=== PATIENT | male | born 1955 | race Caucasian/White ===

== ENCOUNTER → 2016-06-26 | Outpatient (CLI) | payer BC, OTHER | LOC: RAD 10:50 | PROVIDERS: ATTEND Orthopaedic Surgery | DX: S46.012S Strain of muscle(s) and tendon(s) of the rotator cuff of left shoulder, sequela (principal); X58.XXXS Exposure to other specified factors, sequela ==

== ENCOUNTER → 2016-07-15 | Outpatient (CLI) | payer BC, OTHER ==
[2016-07-15 15:32] LABS: ABSOLUTE BASOPHILS # (AUTO) 0.1 10^3/uL (0.0-0.2); ABSOLUTE EOSINOPHILS # (AUTO) 0.1 10^3/uL (0.0-0.6); ABSOLUTE MONOCYTES (AUTO) 0.5 10^3/uL (0.1-1.4); ABSOLUTE NEUT (AUTO) 4.1 10^3/uL (1.7-8.2); BASOPHILS % (AUTO) 0.8 % (0-2); EOSINOPHILS % (AUTO) 1.8 % (0-6); HEMATOCRIT 39.8 % (37.9-51.0); HEMOGLOBIN 13.6 g/dL (13.5-17.0); LYMPHOCYTES % (AUTO) 29.5 % (13-45); MEAN CORPUSCULAR HGB CONC 34.1 g/dL (32.0-36.0); MEAN CORPUSCULAR VOLUME 76 fl (80-97); MONOCYTES % (AUTO) 7.9 % (3-13); RED BLOOD COUNT 5.23 10^6/uL (4.35-5.55); RED CELL DISTRIBUTION WIDTH 14.6 % (11.5-14.0); WHITE BLOOD COUNT 6.8 10^3/uL (4.0-10.5)
[2016-07-15 15:39] LABS: APPEARANCE,URINE SLIGHTLY-CLOUDY; BILIRUBIN,URINE NEGATIVE (NEGATIVE); GLUCOSE, URINE NEGATIVE (NEGATIVE); KETONES,URINE NEGATIVE (NEGATIVE); LEUKOCYTE ESTERASE,URINE NEGATIVE (NEGATIVE); NITRITE,URINE NEGATIVE (NEGATIVE); PROTEIN,URINE NEGATIVE (NEGATIVE); URINE SPECIFIC GRAVITY 1.009; UROBILINOGEN,URINE NEGATIVE mg/dL (<2.0)
[2016-07-15 15:54] LABS: ANION GAP 13 (5-19); BLOOD UREA NITROGEN 13 mg/dL (7-20); CALCIUM 11.1 mg/dL (8.4-10.2); CARBON DIOXIDE 27 mmol/L (22-30); CHLORIDE 104 mmol/L (98-107); CREATININE RESULT 0.84 mg/dL (0.52-1.25); GLUCOSE 82 mg/dL (75-110); POTASSIUM 4.6 mmol/L (3.6-5.0); SODIUM 144.2 mmol/L (137-145)
--- NOTE | 2016-07-15 21:17 | EKG REPORT ---
SEVERITY:- NORMAL ECG - SINUS RHYTHM : Confirmed by: Justine Alexander 15-Jul-2016 21:16:50
== END ==
LOC: OD 14:06
PROVIDERS: ATTEND Orthopaedic Surgery
DX: Z01.810 Encounter for preprocedural cardiovascular examination (principal); Z01.812 Encounter for preprocedural laboratory examination; Z01.818 Encounter for other preprocedural examination
CPT/HCPCS: 36415; 71020; 80048; 81001; 85025; 93005; 93010

== ENCOUNTER 2016-08-13 05:23 | Day surgery (SDC) | payer BC, OTHER ==
[~2016-08-13 05:23] MED LIST: CEFAZOLIN 2 GM/D5W RTU 2 GM/50 ML RTUPB IV PRN; LACTATED RINGERS 1000 ML IV PRN; LIDOCAINE 0.5% INJ-PF (5 MG/ML) 50 ML SDV SUBCUT PRN
[2016-08-13] MEDS ORDERED: BUPIVACAINE HCL 0.5 % INJ/PF 30 ML SDV ONE (06:46)
[2016-08-13] MEDS ORDERED: PROPOFOL INJ 200 MG/20 ML VIAL IV ONE (06:48)
[2016-08-13] MEDS ORDERED: FENTANYL CITRATE INJ/PF 250 MCG/5 ML AMPULE ONE (06:48)
[2016-08-13] MEDS ORDERED: MIDAZOLAM 2 MG/2 ML INJ ONE (06:48)
[2016-08-13] MEDS ORDERED: EPHEDRINE SULFATE INJ 50 MG/1 ML AMPULE ONE (06:48)
[2016-08-13] MEDS ORDERED: ACETAMINOPHEN 100 ML IV ONE ×2 (06:48→15:22)
[2016-08-13] MEDS ORDERED: EPINEPHRINE INJ/PF 1 MG/1 ML AMPULE ONE ×4 (07:15→09:18)
[2016-08-13] MEDS: EPINEPHRINE INJ/PF 1 MG/1 ML AMPULE ONE ×2 (08:34→09:20)
[2016-08-13] MEDS ORDERED: HYDROMORPHONE HCL INJ/PF 2 MG/ML AMPULE ONE (09:41)
[2016-08-13] MEDS ORDERED: FENTANYL CITRATE INJ/PF 100 MCG/2 ML AMPUL ONE (09:41)
[2016-08-13] MEDS ORDERED: ONDANSETRON HCL INJ/PF 4 MG/2 ML SDV IV PRN (11:21)
[2016-08-13] MEDS ORDERED: MEPERIDINE HCL/PF INJ 25 MG/1 ML DISP.SYRIN IV PRN (11:21)
[2016-08-13] MEDS ORDERED: FENTANYL CITRATE INJ/PF 100 MCG/2 ML AMPUL IV PRN ×3 (11:21)
[2016-08-13] MEDS ORDERED: PROMETHAZINE HCL INJ 25 MG/1 ML VIAL IV PRN ×2 (11:21)
[2016-08-13] MEDS ORDERED: MORPHINE SULFATE 10 MG/ML INJ IV PRN (11:21)
[2016-08-13] MEDS ORDERED: OXYCODONE-ACETAMINOPHEN 5-325 MG TABLET PO PRN ×3 (11:21→16:56)
[2016-08-13] MEDS ORDERED: DIPHENHYDRAMINE HCL 50 MG/ML VIAL IV PRN (11:21)
[2016-08-13] MEDS ORDERED: DEXMEDETOMIDINE INJ 80 MCG/20 ML VIAL IV ONE ×2 (13:22→13:44)
--- NOTE | 2016-08-13 13:57 | Operative Report ---
Operative Report DATE OF SURGERY: 08/13/16 PREOPERATIVE DIAGNOSIS: Left shoulder rotator cuff tear and AC joint arthropathy POSTOPERATIVE DIAGNOSIS: Same OPERATION: Left shoulder arthroscopic rotator cuff repair including dermal allograft augmentation SURGEON: DAYNE RODAS ANESTHESIA: GA TISSUE REMOVED OR ALTERED: None COMPLICATIONS: I have one anchor pullout but was able to remove the anchor successfully. ESTIMATED BLOOD LOSS: 25 mL INTRAOPERATIVE FINDINGS: As above PROCEDURE: IMPLANTS: Dermal allograft. 2 bio composite push locks, one 5.5 mm corkscrew bio composite. 3 biocomposite swivel lock. DESCRIPTION OF PROCEDURE: Patient was brought to the operating room placed in supine position. After successfully induced and intubated the patient patient was placed in the beachchair position the head and endotracheal tube was secured appropriately. The left shoulder was prepped and draped in a normal surgical fashion. A timeout was done identifying the left shoulder as the correct site. After inflating the glenohumeral joint with sterile saline solution an 11 blade was used to establish the posterior portal. The arthroscope was introduced and return of fluid was seen showing that we successfully penetrated the glenohumeral joint. With the use of spinal needle we're able to abimbola the anterior portal and using an 11 blade able to establish anterior portal. A cannula was introduced through the anterior portal. At this point diagnostic scope was done. Patient had a irreparable rotator cuff repair. The infraspinatus was able to be brought back proximally but the supraspinatus was passed the glenoid and unable to bring back to the humeral head. At point I decided to use a dermal allograft for augmentation of her my repair. A lateral portal was established 11 blade. 4.0mm shaver was introduced and was used to prepare the bone for preparation of anchor placement. Same was done for the glenoid superiorly. I turned my attention to the glenoid where I did [address] place a push lock anterior and posteriorly using FiberWire to preload him. Was able to use a 2.9 drill guide and drilled the posterior one followed by the anterior one. I pulled on the FiberWire showing that there was secured. I then turned my attention to place a corkscrew in the posterior aspect of the humeral head for passing into the interspace tendon. I used a corkscrew the past all 4 strands through the tendon. I then placed a swivel lock loaded with a Fibertape. The fiber tape. I measured accordingly and then put the dermal graft to meet the thigh mentions a my 4 anchors. I was able then to place the dermal allograft and secured in the glenoid followed by the humeral head. I then placed my fiber tape securing the dermal allograft onto my lateral row by doing to lateral row pustules and successfully locking myofiber tape. Sounds workup. Due to the amount of swelling at this point we proceeded then to abort during the distal clavicle excision. Patient had a Stuart placed showing 700 mL's of fluid. Patient swelling was significant in the neck and therefore patient was intubated and sent to PACU where he was on a ventilator. Plan to extubate him either in the PACU later tonight or keep him in the ICU overnight for observation and extubated in the morning. Final pictures were taking showing my repair. At this point fluid from the shoulder was removed camera and instruments were all removed. I proceeded to close my portal sites with 3-0 nylon. Xeroform 4 x 4 dressing followed by ABDs pads and Medipore tape was applied. Patient was placed in a sling.
[2016-08-13] MEDS ORDERED: VECURONIUM BROMIDE INJ 10 MG VIAL IV ONE (14:20)
[2016-08-13] MEDS ORDERED: ONDANSETRON HCL INJ/PF 4 MG/2 ML SDV ONE (14:20)
[2016-08-13] MEDS ORDERED: METOCLOPRAMIDE HCL INJ/PF 10 MG/2 ML SDV ONE (14:20)
[2016-08-13] MEDS ORDERED: DEXAMETHASONE SOD PHOSPHATE INJ 4 MG/1 ML VIAL ONE (14:20)
[2016-08-13] MEDS ORDERED: LIDOCAINE 2% INJ-PF (20 MG/ML) 10 ML AMPUL ONE (14:20)
[2016-08-13] MEDS ORDERED: SUCCINYLCHOLINE CHLORIDE INJ 200 MG/10 ML VIAL ONE (14:20)
--- NOTE | 2016-08-13 14:30 | RADIOLOGY REPORT (SQ) ---
EXAM DESCRIPTION: CHEST SINGLE VIEW COMPLETED DATE/TIME: 08/13/2016 2:02 pm REASON FOR STUDY: POST OP PACU COMPARISON: 07/15/2016 EXAM PARAMETERS: NUMBER OF VIEWS: One view. TECHNIQUE: Single frontal radiographic view of the chest acquired. RADIATION DOSE: NA LIMITATIONS: None. FINDINGS: LUNGS AND PLEURA: There is opacity in the left base and the left hemidiaphragm is indistin ct. MEDIASTINUM AND HILAR STRUCTURES: No masses. Contour normal. HEART AND VASCULAR STRUCTURES: Cardiomegaly. There is no evidence of failure. BONES: No acute findings. HARDWARE: An endotracheal tube is present with the tip of tube 4 cm above the vesna. OTHER: No other significant finding. IMPRESSION: 1. A left lower lobe pneumonia cannot be ruled out. 2. Cardiomegaly without CHF. 3. Endotracheal tube as described. TECHNICAL DOCUMENTATION: JOB ID: [id number]
--- NOTE | 2016-08-13 14:32 | RADIOLOGY REPORT (SQ) ---
EXAM DESCRIPTION: SOFT TISSUE NECK COMPLETED DATE/TIME: 08/13/2016 2:02 pm REASON FOR STUDY: POST OP PACU M75.122 COMPLETE ROTATOR-CUFF TEAR/RUPTURE OF LEFT SHOULDER, NO COMPARISON: None. NUMBER OF VIEWS: Two views. TECHNIQUE: AP and lateral radiographic image of the soft tissues of the neck. LIMITATIONS: None. FINDINGS: An endotracheal tube is present. The tip of the tube is at the level of the vesna. Soft tissue structures in the neck are difficult to evaluate because of the presence of the tube. IMPRESSION: Endotracheal tube. Findings as described. TECHNICAL DOCUMENTATION: JOB ID: [id number] [id number]- All Rights Reserved
[2016-08-13] MEDS: HYDROMORPHONE HCL INJ/PF 2 MG/ML AMPULE ONE ×2 (14:48→15:20)
[2016-08-13] MEDS ORDERED: RINGERS SOLUTION,LACTATED 1,000 ML IV PRN (16:57)
[2016-08-13] MEDS ORDERED: IBUPROFEN 800 MG in NORMAL SALINE 250 ML IV ONE (18:00)
[2016-08-13] MEDS: OXYCODONE-ACETAMINOPHEN 5-325 MG TABLET PO PRN (18:01)
--- NOTE | 2016-08-13 19:13 | PDOC DISCHARGE SUMMARY ---
Discharge Summary (SDC) - Discharge Final Diagnosis: Left shoulder arthroscopic rotator cuff repair with dermal allograft augmentation Date of Surgery: 08/13/16 Discharge Date: 08/14/16 Condition: Good Treatment or Instructions: Patient is instructed to follow up in 10-14 days. Patient instructed to remove dressing in 4 days then can shower and apply Band- Aids as needed. Patient to wear sling for comfort but okay to remove for shower and pendulum exercises. Pendulum exercises are instructed to be done 3 times a day ideally with breakfast, lunch, dinners and showers. Patient instructed to call if there is any signs of redness or drainage fevers or chills. Prescriptions: Ondansetron HCl [Zofran 4 mg Tablet] 1 - 2 tab PO Q8HP PRN #10 tablet PRN Reason: Oxycodone HCl/Acetaminophen [Percocet 5-325 mg Tablet] 1 - 2 tab PO ASDIR PRN # 60 tablet PRN Reason: Discharge Diet: As Tolerated Respiratory Treatments at Home: Deep Breathing/Coughing Discharge Activity: No Lifting/Push/Pulling, Walk Frequently Report the Following to Your Physician Immediately: Shortness of Breath, Vomiting, Increase in Pain, Fever over 101 Degrees, Unusual Bleeding, Redness, Swelling, Warmth, Drainage-Yellow, Drainage-Green, Drainage-Foul Smelling, Visual Disturbance, Seizure
[2016-08-14] MEDS: OXYCODONE-ACETAMINOPHEN 5-325 MG TABLET PO PRN ×2 (00:22→06:18)
[2016-08-14 07:38] VITALS: BP 139/74
== END 2016-08-14 08:40 | disposition home or self-care (01) ==
LOC: OROUT 05:23 → 4S 16:45 → OROUT 08-14 08:40
PROVIDERS: ATTEND Orthopaedic Surgery
PROC: 0LU Tendons, Supplement (ICD-10-PCS; 2016-08-13)
PROC: 0RJK4ZZ Inspection of Left Shoulder Joint, Percutaneous Endoscopic Approach (ICD-10-PCS; principal; 2016-08-13 07:30)
DX: M25.512 Pain in left shoulder (principal); M13.812 Other specified arthritis, left shoulder; M75.122 Complete rotator cuff tear or rupture of left shoulder, not specified as traumatic; E66.9 Obesity, unspecified; I10 Essential (primary) hypertension; Z68.30 Body mass index [BMI] 30.0-30.9, adult; Z79.899 Other long term (current) drug therapy; Z79.1 Long term (current) use of non-steroidal anti-inflammatories (NSAID); Z79.82 Long term (current) use of aspirin; Z87.891 Personal history of nicotine dependence
CPT/HCPCS: 71010; 70360; 94002; 29805; 23420; 15777; C1713 ×4; Q4125; J2250; J1100; J3490 ×4; J0171; J3010 ×2; J2765; J1170; J0330; J2405; J7050; J2704; J0690; J0131; J1741; 1630

== ENCOUNTER → 2016-11-17 | Outpatient (CLI) | payer BC, OTHER ==
[2016-11-19 06:39] LABS: LUTEINIZING HORMONE 15.3 mIU/mL (1.7-8.6)
[2016-11-19 07:20] LABS: FOLLICLE STIMULATING HORMONE 17.7 mIU/mL (1.5-12.4)
== END ==
LOC: OD 17:40
PROVIDERS: ATTEND Urology
DX: I10 Essential (primary) hypertension (principal); N34.1 Nonspecific urethritis; N45.1 Epididymitis; K59.02 Outlet dysfunction constipation
CPT/HCPCS: 36415; 83001; 83002; 84153; 84403

== ENCOUNTER → 2016-12-18 | Outpatient (CLI) | payer BC ==
--- NOTE | 2016-12-18 12:53 | RADIOLOGY REPORT (SQ) ---
EXAM DESCRIPTION: MRI LT UPPER JOINT WITHOUT COMPLETED DATE/TIME: 12/18/2016 10:29 am REASON FOR STUDY: LEFT SHOULDER PAIN (M25.512) M25.512 PAIN IN LEFT SHOULDER COMPARISON: MRI left shoulder without contrast 06/26/2016 TECHNIQUE: Left shoulder images acquired and stored on PACS. Multiplanar imaging to include fat sens itive sequences such as T1, water sensitive sequences such as FST2/STIR, cartilage sensitive sequence s such as FSPD/gradient-echo sequences. LIMITATIONS: None. FINDINGS: BONE MARROW AND CORTEX: No worrisome bone lesions or marrow replacement. No occult fractur es. JOINT OR BURSAL EFFUSION: Small amount of subacromial/ subdeltoid bursal fluid. GLENO-HUMERAL ARTICULATION: Normal articulation. No subluxation. No cystic change. No osteophytes or cartilage loss. ACROMION AND AC JOINT: Type 2 acromion with bulky acromioclavicular joint bony spurring on sagittal i mage 8. The humeral head abuts the undersurface of the acromion through a large defect in the supras pinatus tendon. There is narrowing of the subacromial space. ROTATOR CUFF AND INTERVAL: The anterior 2/3 of the supraspinatus tendon are completely torn, with a b are area over the humeral head. The posterior 3rd of the supraspinatus tendon is intact, with tacks anchoring into the greater tuberosity humeral head. The upper half of the infraspinatus tendon is in tact, with tacks present anchoring and to the greater tuberosity left humeral head. There is high-gr mark tendinopathy throughout the lower half of the distal infraspinatus tendon. There is fatty atroph y of the supraspinatus muscle LABRUM AND BICEPS LABRAL COMPLEX: Diffusely abnormal upper half of the labrum from degeneration. No paralabral cysts. Absent intra-articular long head biceps tendon. Biceps tendon not seen in the bi cipital groove. Short head biceps tendon intact. REMAINDER OF LABRUM AND IGHL : Inferior labrum grossly intact. PERIARTICULAR AND ADJACENT SOFT TISSUES: No masses or abnormal nodes. OTHER: There is some fluid signal paralleling the rotator cuff tacks, question loosening. Infection could not entirely be excluded. IMPRESSION: Internal derangement as above TECHNICAL DOCUMENTATION: JOB ID: [id number]- All Rights Reserved
== END ==
LOC: RAD 09:07
PROVIDERS: ATTEND Orthopaedic Surgery
DX: M25.512 Pain in left shoulder (principal)

== ENCOUNTER → 2017-02-09 | Outpatient (CLI) | payer BC, OTHER ==
[2017-02-11 06:39] LABS: LUTEINIZING HORMONE <0.2 mIU/mL (1.7-8.6)
[2017-02-11 08:07] LABS: FOLLICLE STIMULATING HORMONE 0.5 mIU/mL (1.5-12.4)
== END ==
LOC: OD 16:30
PROVIDERS: ATTEND Urology
DX: E29.1 Testicular hypofunction (principal); K59.02 Outlet dysfunction constipation; I10 Essential (primary) hypertension
CPT/HCPCS: 36415; 83001; 83002; 84153; 84403